=== PATIENT | male | born 1940 | race Caucasian/White ===

== ENCOUNTER 2019-06-16 00:09 | Inpatient (IN) | payer OTHER ==
[2019-06-16] VITALS (15 sets, daily range): BP systolic 112–153; BP diastolic 62–78
[~2019-06-16] VITALS: Ht 177.8 cm; Wt 79.6 kg
[~2019-06-16 00:09] MED LIST: ALLOPURINOL100 MG PO; AMBIENPAK10 MG PO; AMLODIPINE BESY10 MG PO; ASPIR 8181 MG PO; ASPIRIN EC325 MG PO; CITALOPRAM HYDR20 M1 PO; CLOPIDOGREL75 M1 PO; ENALAPRIL20 MG PO; FOLIC ACID PO; L40 PO; LEVAQUIN750 MG PO; LOPURIN300 MG PO; METFORMIN ER500 M1 PO; METOPROLOL SUCC50 M2 PO; METOPROLOL100 MG PO; MOBIC15 MG; NIT0.4 SL; POTASSIUM CHLO10 MEQ PO; SIMVASTATIN20 MG PO; STOOL SOFTENER100 MG PO; TRAZODONE50 M1 PO
[2019-06-16 01:23] LABS: CALCIUM 8.6 mg/dL (8.5-10.1); CARBON DIOXIDE 23.7 mmol/L (21-32); CHLORIDE SERUM 105 mmol/L (98-107); CREATININE SERUM 1.6 mg/dL (0.7-1.3); GLUCOSE SERUM 358 mg/dL (74-106); POTASSIUM SERUM 4.1 mmol/L (3.5-5.1); SODIUM SERUM 145 mmol/L (136-145)
[2019-06-16 01:39] LABS: ALKALINE PHOSPHATASE 29 U/L (46-116); ALT/SGPT 25 U/L (16-63); AST/SGOT 21 U/L (15-37); BILIRUBIN TOTAL 0.25 mg/dL (0.20-1.00); MAGNESIUM 2.7 mg/dL (1.8-2.4)
[2019-06-16 01:45] LABS: ALBUMIN 2.7 g/dL (3.4-5.0); TOTAL PROTEIN, SERUM 5.9 g/dL (6.4-8.2)
[2019-06-16 01:48] LABS: PLATELET COUNT 285 x10^3mcL (130-400)
[2019-06-16 02:11] LABS: BAND NEUTROPHIL 3 % (0-10); MONOCYTE 5 % (0-7); SEGMENTED NEUTROPHILS 62 % (37-75)
[2019-06-16 02:13] LABS: PLATELET MORPHOLOGY FEW LARGE PLATELET; rbc morphology (normal/abnorm) ABNORMAL (NORMAL)
[2019-06-16 03:30] LABS: CHOLESTEROL/HDL RATIO 2.4
[2019-06-16 03:34] LABS: FREE T4 0.8 ng/dL (0.76-1.46)
[2019-06-16 04:08] LABS: T3 TOTAL 1.01 ng/mL
[2019-06-16 04:10] LABS: FREE THYROXINE INDEX 1.6 ug/dL (1.4-4.5); T4(THYROXINE) 4.4 ug/dL (4.7-13.3)
[2019-06-16 07:50] LABS: PLATELET COUNT 249 x10^3mcL (130-400)
[2019-06-16 08:17] LABS: RED CELL DISTRIBUTION WIDTH 17.3 % (11.5-14.5)
[2019-06-16 08:41] LABS: ALKALINE PHOSPHATASE 25 U/L (46-116); ALT/SGPT 30 U/L (16-63); AST/SGOT 22 U/L (15-37); BILIRUBIN DIRECT 0.06 mg/dL (0.0-0.2); BILIRUBIN TOTAL 0.2 mg/dL (0.20-1.00); C REACTIVE PROTEIN 1.4 mg/dL (<=0.9); CALCIUM 8.8 mg/dL (8.5-10.1); CARBON DIOXIDE 16.2 mmol/L (21-32); CHLORIDE SERUM 103 mmol/L (98-107); CREATININE SERUM 1.6 mg/dL (0.7-1.3); GLUCOSE SERUM 366 mg/dL (74-106); MAGNESIUM 2.7 mg/dL (1.8-2.4); POTASSIUM SERUM 4.2 mmol/L (3.5-5.1); SODIUM SERUM 145 mmol/L (136-145)
[2019-06-16 09:01] LABS: ALBUMIN 2.8 g/dL (3.4-5.0); TOTAL PROTEIN, SERUM 6.1 g/dL (6.4-8.2)
[2019-06-16 09:48] LABS: LACTIC DEHYDROGENASE (LDH) 238 U/L (100-190); PHOSPHOROUS 7.2 mg/dL (2.5-4.9)
[2019-06-16 11:13] LABS: BAND NEUTROPHIL 0 % (0-10); BASOPHIL 0 % (0-2); MONOCYTE 2 % (0-7); SEGMENTED NEUTROPHILS 98 % (37-75)
[2019-06-16 11:15] LABS: rbc morphology (normal/abnorm) ABNORMAL (NORMAL)
[2019-06-16 11:16] LABS: PLATELET MORPHOLOGY PLATELETS DECREASED
[2019-06-16 13:26] LABS: ERYTHROCYTE SED RATE 28 mm/hr (0-20)
[2019-06-16 17:05] LABS: PLATELET COUNT 200 x10^3mcL (130-400)
[2019-06-16 17:11] LABS: RED CELL DISTRIBUTION WIDTH 17.7 % (11.5-14.5)
[2019-06-16 17:54] LABS: BAND NEUTROPHIL 7 % (0-10); BASOPHIL 0 % (0-2); MONOCYTE 2 % (0-7); PLATELET MORPHOLOGY PLATELETS NORMAL; SEGMENTED NEUTROPHILS 85 % (37-75); rbc morphology (normal/abnorm) ABNORMAL (NORMAL)
[2019-06-17] VITALS (16 sets, daily range): BP systolic 105–138; BP diastolic 60–74
[2019-06-17 05:24] LABS: BASOPHIL % 0.9 % (0-2); PLATELET COUNT 190 x10^3mcL (130-400)
[2019-06-17 05:26] LABS: CALCIUM 8.3 mg/dL (8.5-10.1); CARBON DIOXIDE 26.7 mmol/L (21-32); CHLORIDE SERUM 107 mmol/L (98-107); GLUCOSE SERUM 146 mg/dL (74-106); MAGNESIUM 2.2 mg/dL (1.8-2.4); PHOSPHOROUS 2.5 mg/dL (2.5-4.9); SODIUM SERUM 141 mmol/L (136-145)
[2019-06-17 05:28] LABS: RED CELL DISTRIBUTION WIDTH 16.2 % (11.5-14.5)
[2019-06-18] VITALS (17 sets, daily range): BP systolic 92–130; BP diastolic 49–74
[2019-06-18 05:53] LABS: BASOPHIL % 0.3 % (0-2); PLATELET COUNT 192 x10^3mcL (130-400)
[2019-06-18 06:03] LABS: RED CELL DISTRIBUTION WIDTH 17.5 % (11.5-14.5)
[2019-06-18 06:21] LABS: ALKALINE PHOSPHATASE 17 U/L (46-116); ALT/SGPT 27 U/L (16-63); AST/SGOT 50 U/L (15-37); BILIRUBIN TOTAL 0.45 mg/dL (0.20-1.00); CALCIUM 8.6 mg/dL (8.5-10.1); CARBON DIOXIDE 25.4 mmol/L (21-32); CHLORIDE SERUM 109 mmol/L (98-107); CREATININE SERUM 0.9 mg/dL (0.7-1.3); GLUCOSE SERUM 142 mg/dL (74-106); MAGNESIUM 2.4 mg/dL (1.8-2.4); PHOSPHOROUS 2.3 mg/dL (2.5-4.9); POTASSIUM SERUM 4.2 mmol/L (3.5-5.1); SODIUM SERUM 142 mmol/L (136-145)
[2019-06-18 06:22] LABS: ALBUMIN 2.2 g/dL (3.4-5.0); TOTAL PROTEIN, SERUM 5.7 g/dL (6.4-8.2)
[2019-06-18 08:02] LABS: AMPHETAMINE QUAL UR NONE DETECTED (See below)
[2019-06-18 09:10] LABS: UA SPECIFIC GRAVITY 1.015 (1.005-1.035); microscopic required? YES; urine erythrocyte NEGATIVE (NEGATIVE)
[2019-06-19] VITALS (17 sets, daily range): BP systolic 94–141; BP diastolic 51–79
[2019-06-19 05:39] LABS: BASOPHIL % 0.3 % (0-2); PLATELET COUNT 195 x10^3mcL (130-400)
[2019-06-19 05:47] LABS: RED CELL DISTRIBUTION WIDTH 17.6 % (11.5-14.5)
[2019-06-19 06:02] LABS: CALCIUM 8.8 mg/dL (8.5-10.1); CARBON DIOXIDE 27.8 mmol/L (21-32); CHLORIDE SERUM 107 mmol/L (98-107); GLUCOSE SERUM 115 mg/dL (74-106); MAGNESIUM 2.5 mg/dL (1.8-2.4); PHOSPHOROUS 3.6 mg/dL (2.5-4.9); POTASSIUM SERUM 4.3 mmol/L (3.5-5.1); SODIUM SERUM 142 mmol/L (136-145)
[2019-06-20] VITALS (18 sets, daily range): BP systolic 112–155; BP diastolic 57–82
[2019-06-20 05:47] LABS: CALCIUM 9.1 mg/dL (8.5-10.1); CARBON DIOXIDE 27.3 mmol/L (21-32); CHLORIDE SERUM 106 mmol/L (98-107); CREATININE SERUM 1.1 mg/dL (0.7-1.3); GLUCOSE SERUM 164 mg/dL (74-106); MAGNESIUM 2.3 mg/dL (1.8-2.4); PHOSPHOROUS 3.5 mg/dL (2.5-4.9); POTASSIUM SERUM 4.1 mmol/L (3.5-5.1); SODIUM SERUM 142 mmol/L (136-145)
[2019-06-20 05:53] LABS: BASOPHIL % 0.4 % (0-2); PLATELET COUNT 225 x10^3mcL (130-400)
[2019-06-20 05:59] LABS: RED CELL DISTRIBUTION WIDTH 17.3 % (11.5-14.5)
[2019-06-21] VITALS (14 sets, daily range): BP systolic 103–138; BP diastolic 51–72
[2019-06-21 05:11] LABS: BASOPHIL % 0.4 % (0-2); PLATELET COUNT 243 x10^3mcL (130-400)
[2019-06-21 05:17] LABS: RED CELL DISTRIBUTION WIDTH 17.7 % (11.5-14.5)
[2019-06-21 05:24] LABS: CALCIUM 9.5 mg/dL (8.5-10.1); CARBON DIOXIDE 30.7 mmol/L (21-32); CHLORIDE SERUM 104 mmol/L (98-107); GLUCOSE SERUM 156 mg/dL (74-106); MAGNESIUM 2.6 mg/dL (1.8-2.4); PHOSPHOROUS 3.8 mg/dL (2.5-4.9); POTASSIUM SERUM 4.4 mmol/L (3.5-5.1); SODIUM SERUM 141 mmol/L (136-145)
[2019-06-22] VITALS (18 sets, daily range): BP systolic 102–155; BP diastolic 50–77
[2019-06-22 05:09] LABS: BASOPHIL % 0.3 % (0-2); PLATELET COUNT 262 x10^3mcL (130-400)
[2019-06-22 05:16] LABS: RED CELL DISTRIBUTION WIDTH 17.7 % (11.5-14.5)
[2019-06-22 05:19] LABS: CALCIUM 9.6 mg/dL (8.5-10.1); CARBON DIOXIDE 31.1 mmol/L (21-32); CHLORIDE SERUM 104 mmol/L (98-107); GLUCOSE SERUM 156 mg/dL (74-106); MAGNESIUM 2.7 mg/dL (1.8-2.4); PHOSPHOROUS 4.7 mg/dL (2.5-4.9); POTASSIUM SERUM 4.2 mmol/L (3.5-5.1); SODIUM SERUM 142 mmol/L (136-145)
[2019-06-23] VITALS (19 sets, daily range): BP systolic 115–144; BP diastolic 54–69
[2019-06-23 05:48] LABS: BASOPHIL % 0.6 % (0-2); PLATELET COUNT 275 x10^3mcL (130-400)
[2019-06-23 05:57] LABS: CARBON DIOXIDE 32.9 mmol/L (21-32); CHLORIDE SERUM 104 mmol/L (98-107); CREATININE SERUM 1.1 mg/dL (0.7-1.3); GLUCOSE SERUM 137 mg/dL (74-106); MAGNESIUM 2.8 mg/dL (1.8-2.4); PHOSPHOROUS 4.6 mg/dL (2.5-4.9); POTASSIUM SERUM 4.2 mmol/L (3.5-5.1); SODIUM SERUM 144 mmol/L (136-145)
[2019-06-23 06:07] LABS: RED CELL DISTRIBUTION WIDTH 17.5 % (11.5-14.5)
[2019-06-24] VITALS (17 sets, daily range): BP systolic 102–144; BP diastolic 50–67
[2019-06-24 05:32] LABS: BASOPHIL % 0.5 % (0-2); PLATELET COUNT 294 x10^3mcL (130-400)
[2019-06-24 05:33] LABS: RED CELL DISTRIBUTION WIDTH 17.4 % (11.5-14.5)
[2019-06-24 05:37] LABS: CALCIUM 10.2 mg/dL (8.5-10.1); CARBON DIOXIDE 34.7 mmol/L (21-32); CHLORIDE SERUM 105 mmol/L (98-107); CREATININE SERUM 1.3 mg/dL (0.7-1.3); GLUCOSE SERUM 144 mg/dL (74-106); MAGNESIUM 3.1 mg/dL (1.8-2.4); PHOSPHOROUS 5.1 mg/dL (2.5-4.9); POTASSIUM SERUM 4.3 mmol/L (3.5-5.1); SODIUM SERUM 145 mmol/L (136-145)
[2019-06-25] VITALS (18 sets, daily range): BP systolic 108–136; BP diastolic 49–73
[2019-06-25 05:29] LABS: BASOPHIL % 0.3 % (0-2); PLATELET COUNT 333 x10^3mcL (130-400); RED CELL DISTRIBUTION WIDTH 17.6 % (11.5-14.5)
[2019-06-25 05:32] LABS: CARBON DIOXIDE 33.9 mmol/L (21-32); CHLORIDE SERUM 104 mmol/L (98-107); CREATININE SERUM 1.3 mg/dL (0.7-1.3); GLUCOSE SERUM 150 mg/dL (74-106); PHOSPHOROUS 4.7 mg/dL (2.5-4.9); POTASSIUM SERUM 4.2 mmol/L (3.5-5.1); SODIUM SERUM 142 mmol/L (136-145)
[2019-06-26] VITALS (22 sets, daily range): BP systolic 93–145; BP diastolic 49–73
[2019-06-26 05:56] LABS: BASOPHIL % 0.5 % (0-2); CARBON DIOXIDE 36.1 mmol/L (21-32); CHLORIDE SERUM 105 mmol/L (98-107); CREATININE SERUM 1.4 mg/dL (0.7-1.3); GLUCOSE SERUM 126 mg/dL (74-106); MAGNESIUM 3.2 mg/dL (1.8-2.4); PHOSPHOROUS 4.7 mg/dL (2.5-4.9); PLATELET COUNT 347 x10^3mcL (130-400); POTASSIUM SERUM 4.2 mmol/L (3.5-5.1); SODIUM SERUM 148 mmol/L (136-145)
[2019-06-26 05:57] LABS: RED CELL DISTRIBUTION WIDTH 17.5 % (11.5-14.5)
[2019-06-27] VITALS (26 sets, daily range): BP systolic 101–150; BP diastolic 50–69
[2019-06-27 05:56] LABS: BASOPHIL % 0.2 % (0-2); PLATELET COUNT 378 x10^3mcL (130-400)
[2019-06-27 06:05] LABS: RED CELL DISTRIBUTION WIDTH 17.7 % (11.5-14.5)
[2019-06-27 06:08] LABS: CALCIUM 10.3 mg/dL (8.5-10.1); CARBON DIOXIDE 36.9 mmol/L (21-32); CHLORIDE SERUM 105 mmol/L (98-107); CREATININE SERUM 1.3 mg/dL (0.7-1.3); GLUCOSE SERUM 172 mg/dL (74-106); MAGNESIUM 3.1 mg/dL (1.8-2.4); PHOSPHOROUS 3.7 mg/dL (2.5-4.9); POTASSIUM SERUM 4.5 mmol/L (3.5-5.1); SODIUM SERUM 147 mmol/L (136-145)
[2019-06-27 15:36] LABS: BASOPHIL % 1.6 % (0-2); PLATELET COUNT 369 x10^3mcL (130-400)
[2019-06-27 15:44] LABS: RED CELL DISTRIBUTION WIDTH 17.2 % (11.5-14.5)
[2019-06-28] VITALS (15 sets, daily range): BP systolic 95–158; BP diastolic 50–78
[2019-06-28 05:44] LABS: BASOPHIL % 0.2 % (0-2)
[2019-06-28 05:45] LABS: PLATELET COUNT 406 x10^3mcL (130-400); RED CELL DISTRIBUTION WIDTH 17.6 % (11.5-14.5)
[2019-06-28 05:52] LABS: CALCIUM 10.3 mg/dL (8.5-10.1); CHLORIDE SERUM 104 mmol/L (98-107); CREATININE SERUM 1.6 mg/dL (0.7-1.3); GLUCOSE SERUM 171 mg/dL (74-106); MAGNESIUM 3.1 mg/dL (1.8-2.4); PHOSPHOROUS 4.3 mg/dL (2.5-4.9); POTASSIUM SERUM 4.2 mmol/L (3.5-5.1); SODIUM SERUM 146 mmol/L (136-145)
[2019-06-29] VITALS (18 sets, daily range): BP systolic 111–163; BP diastolic 53–70
[2019-06-29 05:26] LABS: CALCIUM 10.3 mg/dL (8.5-10.1); CARBON DIOXIDE 36.5 mmol/L (21-32); CHLORIDE SERUM 107 mmol/L (98-107); GLUCOSE SERUM 193 mg/dL (74-106); MAGNESIUM 3.2 mg/dL (1.8-2.4); PHOSPHOROUS 4.7 mg/dL (2.5-4.9); POTASSIUM SERUM 3.9 mmol/L (3.5-5.1); SODIUM SERUM 147 mmol/L (136-145)
[2019-06-29 05:39] LABS: BASOPHIL % 0.3 % (0-2)
[2019-06-29 05:41] LABS: PLATELET COUNT 405 x10^3mcL (130-400); RED CELL DISTRIBUTION WIDTH 17.7 % (11.5-14.5)
[2019-06-29 08:56] LABS: microscopic required? NO
[2019-06-29 09:08] LABS: UA SPECIFIC GRAVITY 1.025 (1.005-1.035); urine erythrocyte NEGATIVE (NEGATIVE)
[2019-06-30] VITALS (18 sets, daily range): BP systolic 99–165; BP diastolic 48–69
[2019-06-30 06:06] LABS: CALCIUM 10.6 mg/dL (8.5-10.1); CARBON DIOXIDE 36.8 mmol/L (21-32); CHLORIDE SERUM 108 mmol/L (98-107); CREATININE SERUM 1.7 mg/dL (0.7-1.3); GLUCOSE SERUM 182 mg/dL (74-106); MAGNESIUM 3.2 mg/dL (1.8-2.4); PHOSPHOROUS 4.2 mg/dL (2.5-4.9); POTASSIUM SERUM 3.7 mmol/L (3.5-5.1); SODIUM SERUM 149 mmol/L (136-145)
[2019-06-30 06:44] LABS: BASOPHIL % 0.4 % (0-2)
[2019-06-30 07:10] LABS: PLATELET COUNT 409 x10^3mcL (130-400); RED CELL DISTRIBUTION WIDTH 17.5 % (11.5-14.5)
[2019-07-01] VITALS (15 sets, daily range): BP systolic 111–136; BP diastolic 51–62; Ht 177.8 cm; Wt 79.6 kg
[2019-07-01 05:28] LABS: BASOPHIL % 0.3 % (0-2)
[2019-07-01 05:38] LABS: CALCIUM 10.8 mg/dL (8.5-10.1); CARBON DIOXIDE 35.9 mmol/L (21-32); CHLORIDE SERUM 107 mmol/L (98-107); CREATININE SERUM 1.7 mg/dL (0.7-1.3); GLUCOSE SERUM 178 mg/dL (74-106); PHOSPHOROUS 4.2 mg/dL (2.5-4.9); PLATELET COUNT 438 x10^3mcL (130-400); POTASSIUM SERUM 3.9 mmol/L (3.5-5.1); RED CELL DISTRIBUTION WIDTH 18.2 % (11.5-14.5); SODIUM SERUM 149 mmol/L (136-145)
[2019-07-01 22:03] LABS: microscopic required? NO
[2019-07-01 22:14] LABS: UA SPECIFIC GRAVITY 1.015 (1.005-1.035); urine erythrocyte NEGATIVE (NEGATIVE)
[2019-07-02] VITALS (18 sets, daily range): BP systolic 107–148; BP diastolic 48–68
[2019-07-02 06:04] LABS: BASOPHIL % 0.5 % (0-2)
[2019-07-02 06:10] LABS: PLATELET COUNT 402 x10^3mcL (130-400); RED CELL DISTRIBUTION WIDTH 18.2 % (11.5-14.5)
[2019-07-02 06:13] LABS: CALCIUM 10.2 mg/dL (8.5-10.1); CARBON DIOXIDE 37.6 mmol/L (21-32); CHLORIDE SERUM 111 mmol/L (98-107); CREATININE SERUM 1.6 mg/dL (0.7-1.3); GLUCOSE SERUM 152 mg/dL (74-106); MAGNESIUM 2.9 mg/dL (1.8-2.4); PHOSPHOROUS 3.7 mg/dL (2.5-4.9); POTASSIUM SERUM 3.8 mmol/L (3.5-5.1); SODIUM SERUM 152 mmol/L (136-145)
[2019-07-03] VITALS (20 sets, daily range): BP systolic 104–154; BP diastolic 49–70
[2019-07-03 06:23] LABS: BASOPHIL % 0.6 % (0-2)
[2019-07-03 06:31] LABS: CARBON DIOXIDE 34.3 mmol/L (21-32); CHLORIDE SERUM 106 mmol/L (98-107); CREATININE SERUM 1.5 mg/dL (0.7-1.3); GLUCOSE SERUM 150 mg/dL (74-106); MAGNESIUM 2.9 mg/dL (1.8-2.4); PHOSPHOROUS 4.3 mg/dL (2.5-4.9); POTASSIUM SERUM 4.1 mmol/L (3.5-5.1); SODIUM SERUM 146 mmol/L (136-145)
[2019-07-03 06:34] LABS: PLATELET COUNT 434 x10^3mcL (130-400); RED CELL DISTRIBUTION WIDTH 17.8 % (11.5-14.5)
[2019-07-04] VITALS (15 sets, daily range): BP systolic 104–141; BP diastolic 52–66
[2019-07-04 06:59] LABS: PLATELET COUNT 420 x10^3mcL (130-400); RED CELL DISTRIBUTION WIDTH 18.5 % (11.5-14.5)
[2019-07-04 07:17] LABS: CALCIUM 9.4 mg/dL (8.5-10.1); CARBON DIOXIDE 32.5 mmol/L (21-32); CHLORIDE SERUM 97 mmol/L (98-107); CREATININE SERUM 1.5 mg/dL (0.7-1.3); GLUCOSE SERUM 218 mg/dL (74-106); MAGNESIUM 2.8 mg/dL (1.8-2.4); PHOSPHOROUS 4.2 mg/dL (2.5-4.9); POTASSIUM SERUM 3.6 mmol/L (3.5-5.1); SODIUM SERUM 136 mmol/L (136-145)
[2019-07-05] VITALS (15 sets, daily range): BP systolic 109–129; BP diastolic 49–67
[2019-07-05 05:48] LABS: CALCIUM 9.5 mg/dL (8.5-10.1); CARBON DIOXIDE 32.3 mmol/L (21-32); CHLORIDE SERUM 106 mmol/L (98-107); CREATININE SERUM 1.3 mg/dL (0.7-1.3); GLUCOSE SERUM 175 mg/dL (74-106); MAGNESIUM 2.8 mg/dL (1.8-2.4); PHOSPHOROUS 3.7 mg/dL (2.5-4.9); POTASSIUM SERUM 3.7 mmol/L (3.5-5.1); SODIUM SERUM 145 mmol/L (136-145)
[2019-07-05 05:49] LABS: BASOPHIL % 0.2 % (0-2)
[2019-07-05 05:58] LABS: PLATELET COUNT 403 x10^3mcL (130-400)
[2019-07-06] VITALS (17 sets, daily range): BP systolic 94–146; BP diastolic 47–93
[2019-07-06 05:17] LABS: BASOPHIL % 0.5 % (0-2); PLATELET COUNT 369 x10^3mcL (130-400)
[2019-07-06 05:22] LABS: CALCIUM 9.4 mg/dL (8.5-10.1); CARBON DIOXIDE 33.6 mmol/L (21-32); CHLORIDE SERUM 107 mmol/L (98-107); CREATININE SERUM 1.2 mg/dL (0.7-1.3); GLUCOSE SERUM 172 mg/dL (74-106); MAGNESIUM 2.7 mg/dL (1.8-2.4); PHOSPHOROUS 4.1 mg/dL (2.5-4.9); POTASSIUM SERUM 3.8 mmol/L (3.5-5.1); SODIUM SERUM 146 mmol/L (136-145)
[2019-07-06 05:33] LABS: RED CELL DISTRIBUTION WIDTH 18.4 % (11.5-14.5)
[2019-07-07] VITALS (18 sets, daily range): BP systolic 102–154; BP diastolic 45–61
[2019-07-07 05:28] LABS: BASOPHIL % 0.3 % (0-2); PLATELET COUNT 361 x10^3mcL (130-400)
[2019-07-07 05:36] LABS: CALCIUM 9.5 mg/dL (8.5-10.1); CHLORIDE SERUM 107 mmol/L (98-107); CREATININE SERUM 1.3 mg/dL (0.7-1.3); GLUCOSE SERUM 159 mg/dL (74-106); MAGNESIUM 2.6 mg/dL (1.8-2.4); PHOSPHOROUS 4.3 mg/dL (2.5-4.9); SODIUM SERUM 146 mmol/L (136-145)
[2019-07-07 05:40] LABS: RED CELL DISTRIBUTION WIDTH 18.5 % (11.5-14.5)
[2019-07-08] VITALS (8 sets, daily range): BP systolic 124–149; BP diastolic 61–73
[2019-07-08 07:01] LABS: BASOPHIL % 0.4 % (0-2); PLATELET COUNT 370 x10^3mcL (130-400)
[2019-07-08 07:09] LABS: CALCIUM 9.7 mg/dL (8.5-10.1); CARBON DIOXIDE 31.4 mmol/L (21-32); CHLORIDE SERUM 107 mmol/L (98-107); CREATININE SERUM 1.2 mg/dL (0.7-1.3); GLUCOSE SERUM 144 mg/dL (74-106); MAGNESIUM 2.6 mg/dL (1.8-2.4); PHOSPHOROUS 4.1 mg/dL (2.5-4.9); POTASSIUM SERUM 4.4 mmol/L (3.5-5.1); SODIUM SERUM 144 mmol/L (136-145)
[2019-07-08 07:37] LABS: RED CELL DISTRIBUTION WIDTH 18.5 % (11.5-14.5)
[2019-07-09] VITALS (8 sets, daily range): BP systolic 102–140; BP diastolic 59–77
[2019-07-09 07:16] LABS: BASOPHIL % 0.2 % (0-2); PLATELET COUNT 356 x10^3mcL (130-400)
[2019-07-09 07:29] LABS: RED CELL DISTRIBUTION WIDTH 18.6 % (11.5-14.5)
[2019-07-09 07:31] LABS: CALCIUM 9.7 mg/dL (8.5-10.1); CARBON DIOXIDE 29.9 mmol/L (21-32); CHLORIDE SERUM 108 mmol/L (98-107); CREATININE SERUM 1.2 mg/dL (0.7-1.3); GLUCOSE SERUM 152 mg/dL (74-106); POTASSIUM SERUM 4.5 mmol/L (3.5-5.1); SODIUM SERUM 143 mmol/L (136-145)
[2019-07-09 08:30] LABS: MAGNESIUM 2.8 mg/dL (1.8-2.4); PHOSPHOROUS 4.2 mg/dL (2.5-4.9)
[2019-07-09 18:27] LABS: microscopic required? NO
[2019-07-09 18:42] LABS: urine erythrocyte NEGATIVE (NEGATIVE)
[2019-07-10] VITALS (13 sets, daily range): BP systolic 124–146; BP diastolic 55–71
[2019-07-10 07:14] LABS: BASOPHIL % 0.4 % (0-2); PLATELET COUNT 384 x10^3mcL (130-400)
[2019-07-10 07:31] LABS: RED CELL DISTRIBUTION WIDTH 18.3 % (11.5-14.5)
[2019-07-10 07:36] LABS: CALCIUM 9.5 mg/dL (8.5-10.1); CARBON DIOXIDE 30.9 mmol/L (21-32); CHLORIDE SERUM 109 mmol/L (98-107); CREATININE SERUM 1.1 mg/dL (0.7-1.3); GLUCOSE SERUM 154 mg/dL (74-106); POTASSIUM SERUM 4.2 mmol/L (3.5-5.1); SODIUM SERUM 145 mmol/L (136-145)
[2019-07-11] VITALS (9 sets, daily range): BP systolic 119–141; BP diastolic 54–61
[2019-07-11 07:20] LABS: BASOPHIL % 0.3 % (0-2); PLATELET COUNT 362 x10^3mcL (130-400)
[2019-07-11 07:32] LABS: RED CELL DISTRIBUTION WIDTH 18.5 % (11.5-14.5)
[2019-07-11 07:50] LABS: CALCIUM 9.6 mg/dL (8.5-10.1); CARBON DIOXIDE 30.5 mmol/L (21-32); CHLORIDE SERUM 108 mmol/L (98-107); GLUCOSE SERUM 144 mg/dL (74-106); MAGNESIUM 2.7 mg/dL (1.8-2.4); PHOSPHOROUS 3.8 mg/dL (2.5-4.9); POTASSIUM SERUM 4.3 mmol/L (3.5-5.1); SODIUM SERUM 145 mmol/L (136-145)
== END 2019-07-11 19:15 | DRG 4 ==
LOC: ED 00:09 → IC 02:36 → DU 07-07 15:20
PROVIDERS: Emergency Medicine; Family Medicine; Internal Medicine Infectious Disease; Student in an Organized Health Care Education/Training Program; ADMIT Internal Medicine
PROC: 5A1955Z Respiratory Ventilation, Greater than 96 Consecutive Hours (ICD-10-PCS; principal; 2019-06-16)
PROC: 0BH17EZ Insertion of Endotracheal Airway into Trachea, Via Natural or Artificial Opening (ICD-10-PCS; 2019-06-16)
PROC: 5A12012 Performance of Cardiac Output, Single, Manual (ICD-10-PCS; 2019-06-16)
PROC: 0B110F4 Bypass Trachea to Cutaneous with Tracheostomy Device, Open Approach (ICD-10-PCS; 2019-07-03)
PROC: 0DH63UZ Insertion of Feeding Device into Stomach, Percutaneous Approach (ICD-10-PCS; 2019-07-03)
DX: A41.9 Sepsis, unspecified organism (principal); J69.0 Pneumonitis due to inhalation of food and vomit; J96.01 Acute respiratory failure with hypoxia; I21.4 Non-ST elevation (NSTEMI) myocardial infarction; N17.0 Acute kidney failure with tubular necrosis; E43 Unspecified severe protein-calorie malnutrition; R65.21 Severe sepsis with septic shock; I46.9 Cardiac arrest, cause unspecified; J96.02 Acute respiratory failure with hypercapnia; G93.1 Anoxic brain damage, not elsewhere classified; E83.41 Hypermagnesemia; E11.65 Type 2 diabetes mellitus with hyperglycemia; I25.10 Atherosclerotic heart disease of native coronary artery without angina pectoris; J44.9 Chronic obstructive pulmonary disease, unspecified; I25.2 Old myocardial infarction; M10.9 Gout, unspecified; E78.5 Hyperlipidemia, unspecified; E66.01 Morbid (severe) obesity due to excess calories; E78.00 Pure hypercholesterolemia, unspecified; I12.9 Hypertensive chronic kidney disease with stage 1 through stage 4 chronic kidney disease, or unspecified chronic kidney disease; N18.9 Chronic kidney disease, unspecified; E11.22 Type 2 diabetes mellitus with diabetic chronic kidney disease; I48.91 Unspecified atrial fibrillation; I25.5 Ischemic cardiomyopathy; I08.0 Rheumatic disorders of both mitral and aortic valves; Z20.828 Contact with and (suspected) exposure to other viral communicable diseases; D63.8 Anemia in other chronic diseases classified elsewhere; Z68.31 Body mass index [BMI] 31.0-31.9, adult; Z95.1 Presence of aortocoronary bypass graft; Z79.84 Long term (current) use of oral hypoglycemic drugs; Z79.899 Other long term (current) drug therapy; Z95.5 Presence of coronary angioplasty implant and graft; Z90.49 Acquired absence of other specified parts of digestive tract; Z82.49 Family history of ischemic heart disease and other diseases of the circulatory system
CPT/HCPCS: 31500; 36556; 36600; 43235; 82962; 83880; 84439; 87804; A4628; C9113; G0378; J0132; J0282; J0456; J0696; J0744; J1200; J1610; J1644; J1815; J1940; J2001; J2250; J2310; J2405; J2543; J2704; J3010; J3370; J3490; J3535; J7030; J7040; J7050; J7060; J7120; Q0092